=== PATIENT | female | born 1955 | race Caucasian/White ===

== ENCOUNTER 2023-02-05 23:01 | Emergency (ER) | payer MEDICARE, SELFPAY ==
[2023-02-05 23:04] VITALS: BP 130/77; PULSE 68; RESP 18; TEMP 36.6; O2SAT 98; BMI 34.7
--- NOTE | 2023-02-05 23:17 | EDS_ITS ---
HPI History of Present Illness Chief Complaint: Bite Narrative Narrative: Patient sustained a cat bite yesterday to her right hand. She noticed more redness today and some pain higher up in the arm. No fevers or chills. No axilla pain. No other injuries. ROS ROS ED ROS Narrative Past medical history: none Medications: Reviewed Social history: Noncontributory Review of systems: General: No fevers Musculoskeletal: Cat bite on the right hand as in HPI Skin: As above Neurological: No weakness or paresthesias Hematologic: On Xarelto for A-fib, bleeds easily. PFSH [facility], [facility] Medical History (Updated 02/06/23 @ 00:[address] Martín Avery MD) Afib Heart failure Home Medications amoxicillin 500 mg-potassium clavulanate 125 mg tablet (Augmentin) 1 tab PO TID #30 tabs 02/06/23 [Rx Last Taken Unknown] Allergy/AdvReac Type Severity Reaction Status Date / Time No Known Allergies Allergy Verified 02/05/23 23:04 Surgical History (Updated 02/05/23 @ 23:29 by Juhi Neves) Hx of cholecystectomy EXAM Physical Exam Narrative Exam Narrative: Physical exam General: Patient does not appear in significant distress . Head: Normocephalic, Atraumatic Neck: No C-spine tenderness Cardiovascular: Normal distal pulses. Regular pulses Back: Nontender, Normal Inspection. Extremities: Right hand shows a Puncture wound over the dorsum of the hand near the first metacarpal region. No bony tenderness. There are some erythema, it is very slight lymphangitic streaking that is barely noticeable but it is about retirement up the arm, half distance to the elbow. No axillary pain or lymphadenopathy Skin: As above Neurological: Normal strength and sensation Const Vital Signs: 02/05/23 23:04 Temperature 97.9 F Temperature Source Temporal Pulse Rate 68 Respiratory Rate 18 Blood Pressure 130/77 H Blood Pressure Mean 94 Pulse Ox 98 Oxygen Delivery Method Room Air MDM MDM MDM Narrative Medical decision making narrative: Patient has infected cat bite only very mild lymphangitic streaking. She has no leukocytosis. She was given IV antibiotics in the ED. I reevaluated her wound is not progressing and does not seem to be very aggressive. I talked to her about admission but at this time I believe she can be safely discharged home. She can receive oral antibiotics. I had a long discussion with her if anything changes she is to return if she gets worse she is to return I demarcated the streak on her arm with a pen and told her if it goes outside the line of she is to return. She understands this. She will be discharged in stable condition. I do not believe she meets criteria for an x-ray. She has normal vitals and heart rate and no fever and a normal white count therefore I do not believe a lactate is needed I believe I sufficiently ruled out sepsis. Lab Data Labs: Laboratory Results - last 24 hr 02/05/23 23:30 WBC 9.8 RBC 4.52 Hgb 14.0 Hct 41.9 MCV 92.7 MCH 31.0 MCHC 33.4 RDW Std Deviation 44.9 H RDW Coeff of [place] 13.2 Plt Count 237 MPV 9.8 Immature Gran % (Auto) 2.100 H Neut % (Auto) 64.7 Lymph % (Auto) 20.5 [place] % (Auto) 9.8 Eos % (Auto) 2.2 Baso % (Auto) 0.7 Absolute Neuts (auto) 6.4 Absolute Lymphs (auto) 2.02 Nucleated RBC % 0 Discharge Plan Triage Chief Complaint: Bite ED Provider: Martín Avery Dx/Rx/DC Orders Clinical Impression: Cellulitis, Lymphangitis, Cat bite Instructions: ED Cat Bite Prescriptions: New amoxicillin-pot clavulanate [Augmentin] 500-125 mg tablet 1 tab PO TID Qty: 30 0RF Primary Care Provider: Marissa Lamebrt Referrals: Marissa Lambert MD [Primary Care Provider] - 2 Days for wound check Disposition Disposition: Home, Self Care
[2023-02-05 23:35] LABS: Absolute Lymphocyte Count 2.02 X10^3/uL (0.83-4.51); Absolute Neutrophil Count 6.4 X10^3/uL (2.0-7.7); Basophil# 0.07 X10^3/uL; Basophil% 0.7 % (0-1); Eosinophil# 0.22 X10^3/uL; Eosinophils% 2.2 % (0-5); Hematocrit 41.9 % (37-47); Lymphocyte # 2.02 X10^3/ul (0.83-4.51); Lymphocyte % 20.5 % (19-41); Mean Corp Hgb Conc 33.4 g/dL (32-36); Mean Corpuscular Volume 92.7 fL (81-99); Mean Platelet Vol. 9.8 fl (6.2-12.0); Monocyte# 0.96 X10^3/uL; Monocyte% 9.8 % (0-10); NRBC Flagged by Analyzer 0 % (0-5); Neutrophil # 6.35 X10^3/uL (2.7-7.7); Neutrophil % 64.7 % (47-70); Platelet Count 237 K/mm3 (150-450); RBC Distribution Width CV 13.2 % (11.6-14.6); RBC Distribution Width SD 44.9 fl (35.1-43.9); Red Blood Count 4.52 M/mm3 (4.2-5.4); White Blood Count 9.8 K/mm3 (4.4-11.0)
[2023-02-06] MEDS: Amox/Clavulanate 875 MG Tablet PO (00:41)
== END 2023-02-06 01:50 | disposition home or self-care (01) ==
PROVIDERS: Emergency Provider Emergency Medicine; PCP Internal Medicine; Visit Provider Emergency Medicine
DX: S61.451A Open bite of right hand, initial encounter (principal); I50.9 Heart failure, unspecified; L03.113 Cellulitis of right upper limb; W55.01XA Bitten by cat, initial encounter
CPT/HCPCS: 85025; 96365; 99284; J7050; A4216; J0295

== ENCOUNTER 2023-02-19 10:54 | Emergency (ER) | payer MEDICARE, SELFPAY ==
[2023-02-19 10:56] VITALS: BP 137/72; PULSE 66; RESP 20; TEMP 36.3; O2SAT 97; BMI 34.9
--- NOTE | 2023-02-19 11:11 | EDS_ITS ---
HPI History of Present Illness Chief Complaint: Allergic Reaction Informant: patient Onset/Context/Timing Onset: Days Context: Gradual Onset Timing: Continuous Current Severity: Mild Maximum Severity: Mild Narrative Narrative: 67-year-old female was bitten by her cat seen in the emergency department on and placed on 10 days of Augmentin. She said about day 5 or 6 she started getting some areas of a red rash that itched. She finished the antibiotic. The rash seems to be improving. Today she thought she had a sore throat and came in to be evaluated. She denies any other complaints. Has no known allergies. Prior similar symptoms: No Recent Illness/Hospitalization: No PFSH PFSH Medical History Afib Heart failure Home Medications amoxicillin 500 mg-potassium clavulanate 125 mg tablet (Augmentin) 1 tab PO TID #30 tabs 02/06/23 [Rx Last Taken Unknown] Allergy/AdvReac Type Severity Reaction Status Date / Time No Known Allergies Allergy Verified 02/19/23 10:55 Surgical History Hx of cholecystectomy Social History Smoking Status: Never smoker ROS ROS ED ROS Narrative Itchy, red rash. Review of Systems ROS Unobtainable: Denies due to encephalopathy Constitutional Constitutional ED: Denies chills or fever(s) Eyes Eyes: Denies blurry vision ENT ENT ED: Reports sore throat; Denies ear pain or rhinorrhea Cardiovascular Cardiovascular: Denies chest pain Respiratory/Chest Respiratory/Chest: Denies cough or dyspnea Gastrointestinal Gastrointestinal: Denies abdominal pain Genitourinary Genitourinary ED: Denies dysuria or hematuria Musculoskeletal Musculoskeletal: Denies arthralgias Integumentary Denies abscess Neurologic Neurologic: Denies headache(s) Psychiatric Psychiatric: Denies anxiety Endocrine Endocrinology: Denies cold intolerance Hematologic/Lymphatic Hematologic/Lymphatic: Reports none Allergic/Immunologic Allergic/Immunologic ED: Denies mouth swelling, tongue swelling or urticaria EXAM Physical Exam Narrative Exam Narrative: Says 7-year-old female no acute distress. Vital signs stable afebrile. HEENT exam posterior pharynx is normal. She has no erythema or exudate. There is no swelling. No trouble swallowing or breathing. No drooling nor stridor. Prior tonsillectomy. There is no signs of infection or allergic reaction to posterior pharynx. Moist mucous membranes. TMs not visualized due to wax. Neck nontender no lymphadenopathy. Trachea midline. Lungs clear. Heart regular rhythm. Abdomen soft. Moving all 4 extremities. She has no swelling. I do not appreciate any significant rash or allergic reaction. There is no hives. Where she was bitten by her cat 2 weeks ago on her right thumb clinically looks well without any signs of infection. Const Vital Signs: 02/19/23 10:56 Temperature 97.4 F L Temperature Source Temporal Pulse Rate 66 Respiratory Rate 20 H Blood Pressure 137/72 H Blood Pressure Mean 93 Pulse Ox 97 Oxygen Delivery Method Room Air Positive well nourished and well developed; Negative for cachectic, contractures or unkempt General Appearance ED: well developed and NAD; Negative for unkempt, cachectic, contractures, cyanotic or diaphoretic Nutritional Appearance: Negative for cachectic HEENT Reports moist mucous membranes; Denies dry mucous membranes Negative for trauma or tenderness Mouth ED: No dry mucous membranes Mouth: No dry mucous membranes Eyes PERRL and EOMs intact bilaterally General Eye ED: Negative for pale conjunctiva, scleral icterus or other Neck no lymphadenopathy, supple and no JVD General: Negative for tenderness Lymph Lymphatic: Negative for other Chest Wall inspection of chest normal and palpation of chest normal Chest: Negative for other Resp normal respiratory effort and clear to auscultation bilaterally Effort and Inspection: Negative for retractions or pain with movement Auscultation: Negative for rales, rhonchi or wheezes Cardio regular rate, regular rhythm, S1 normal heart sound, S2 normal heart sound and no murmurs GI normal to inspection, nondistended, normoactive bowel sounds, non-tender, non- distended and no masses Inspection: Negative for abdominal distention Auscultation: normoactive bowel sounds Palpation: soft; Negative for tender or guarding Bladder / Kidney Exam: No other Back/Spine no CVA tenderness General Back: Negative for CVA tenderness Cervical Spine: Negative for cervical spine tenderness Thoracic Spine / Upper Back: Negative for thoracic spinal tenderness Lumbar Spine / Lower Back: Negative for lumbar spinal tenderness Extremity normal to inspection General Extremety ED: Negative for edema or tenderness General Extremity: Negative for edema Neuro oriented x3 and CN's II-XII intact bilaterally Sensorium / Orientation: alert; Negative for orientation impaired, lethargic or stuporous Motor Exam: strength 5/5 throughout Psych mental status grossly normal Appearance: Negative for unkempt Attitude: No agitated Mood & Affect: Negative for depressed, anxious or tearful Skin no rashes or lesions noted and no wounds Lesions: No lesion noted Rashes: No rashes noted Trauma: Negative for abrasion Wounds: Negative for wounds noted MDM MDM MDM Narrative Medical decision making narrative: 67-year-old most likely had a mild allergic reaction to Augmentin. Currently shiva chacon has no rash or swelling. She does not need any testing. I do not think she needs steroids. She stopped the medication after she finished it 4 to 5 days ago. Patient be discharged home. Discharge Plan Triage Chief Complaint: Allergic Reaction ED Provider: Shaun Meneses Dx/Rx/DC Orders Clinical Impression: Allergic reaction Instructions: ED ADVERSE DRUG REACTION Allergic Prescriptions: No Action amoxicillin-pot clavulanate [Augmentin] 500-125 mg tablet 1 tab PO TID Qty: 30 0RF Primary Care Provider: Marissa Lambert Referrals: Marissa Lambert MD [Primary Care Provider] - As Needed Activity Restrictions/Additional Instructions: This should progressively improved since she stopped the antibiotic 4 to 5 days ago. Follow-up with your doctor as needed. Warm salt water gargling for sore throat Disposition Disposition: Home, Self Care
== END 2023-02-19 11:25 | disposition home or self-care (01) ==
PROVIDERS: Emergency Provider Emergency Medicine; PCP Internal Medicine; Visit Provider Emergency Medicine
DX: T78.40XA Allergy, unspecified, initial encounter (principal); I50.9 Heart failure, unspecified; W55.01XA Bitten by cat, initial encounter
CPT/HCPCS: 99282; A4216

== ENCOUNTER → 2023-05-24 | Outpatient (CLI) | payer MEDICARE, SELFPAY | END | disposition home or self-care (01) | LOC: SL 19:54 | PROVIDERS: PCP Internal Medicine; Referring Provider Psychiatry & Neurology Sleep Medicine; Visit Provider Psychiatry & Neurology Sleep Medicine | DX: G47.33 Obstructive sleep apnea (adult) (pediatric) (principal); G47.34 Idiopathic sleep related nonobstructive alveolar hypoventilation | CPT/HCPCS: 95811 ==

== ENCOUNTER → 2023-07-21 | Outpatient (CLI) | payer MEDICARE, SELFPAY ==
[2023-07-21 13:08] LABS: Calcium,Total 8.7 mg/dL (8.5-10.1); Ferritin 13 ng/mL (8-252)
[2023-07-21 13:12] LABS: PTHIN 61.9 pg/mL (18.4-80.1)
[2023-07-24 12:08] LABS: Anti-Nuclear Antibody Test Positive (.)
== END | disposition home or self-care (01) ==
LOC: MTLAB 10:23
PROVIDERS: PCP Internal Medicine; Referring Provider Dermatology Pediatric Dermatology; Visit Provider Dermatology Pediatric Dermatology
DX: L64.8 Other androgenic alopecia (principal); D64.9 Anemia, unspecified; L65.0 Telogen effluvium; L40.0 Psoriasis vulgaris
CPT/HCPCS: 36415; 82310; 82728; 83970; 86038

== ENCOUNTER 2023-08-09 11:15 | Emergency (ER) | payer MEDICARE, SELFPAY ==
[2023-08-09 11:15] VITALS: BP 130/67; PULSE 90; RESP 14; TEMP 38.4; O2SAT 94; BMI 34.7
--- NOTE | 2023-08-09 11:46 | EDS_ITS ---
HPI HPI - URI History of Present Illness Chief Complaint: Cough Detail of Chief Complaint: Viral-like symptoms that started several days ago now fever 101.8 ?F Informant: patient Onset/Context/Timing Onset: Days Context: Sudden Onset Timing: Continuous and Waxes and wanes Quality: Flulike symptoms Location: Predominantly respiratory Current Severity: Mild Maximum Severity: Moderate Worsened by: Not Worsened By Swallowing, Eating Solids or Drinking Liquids Relieved by: Not Relieved By Tylenol Associated Symptoms Associated Symptoms: Positive for Nasal Congestion, Headache, Myalgias and Nonproductive cough; Negative for Sinus Pressure, Nausea, Vomiting, Diarrhea, Shortness of Breath, Chest Pain or Hemoptysis Narrative Narrative: Patient is a 67-year-old woman who is a former smoker who presents with flulike symptoms that started several days ago. She presents now because of a documented temperature of 101.8. She does have a cough which is nonproductive. She does report mild nasal congestion as well as chest congestion. She has had intermittent wheezing. She denies headache, photophobia, neck pain or neck stiffness. She denies GI symptoms. She denies urologic symptoms. She does report myalgias without arthralgias. She has not noticed skin rash or lesions. She does endorse thirst and dry mouth. She took antipyretic prior to arrival. Prior similar symptoms: No Recent Illness/Hospitalization: No ROS ROS ED Cardiovascular Cardiovascular: Denies chest pain, orthopnea, palpitations or paroxysmal nocturnal dyspnea Respiratory/Chest Respiratory/Chest: Reports cough and dyspnea; Denies dyspnea on exertion, orthopnea or paroxysmal nocturnal dyspnea Gastrointestinal Gastrointestinal: Denies abdominal pain, diarrhea, nausea or vomiting Genitourinary Genitourinary ED: Denies dysuria, hematuria or urinary frequency Musculoskeletal Musculoskeletal: Reports myalgias; Denies arthralgias, back pain or neck pain Integumentary Denies rash Neurologic Neurologic: Reports headache(s) and weakness; Denies paresthesias Hematologic/Lymphatic Hematologic/Lymphatic: Denies easy bleeding or easy bruising [facility] Medical History Afib Heart failure Home Medications amoxicillin 500 mg-potassium clavulanate 125 mg tablet (Augmentin) 1 tab PO TID #30 tabs 02/06/23 [Rx Last Taken Unknown] Allergy/AdvReac Type Severity Reaction Status Date / Time amoxicillin [From Augmentin] Allergy Mild Rash Verified 08/09/23 11:22 clavulanic acid Allergy Mild Rash Verified 08/09/23 11:20 Surgical History Hx of cholecystectomy Social History (Updated 08/09/23 @ 11:[address] Noah Stewart MD) household members: spouse Smoking Status: Former smoker substance use type: does not use EXAM Physical Exam Const Vital Signs: 08/09/23 11:15 08/09/23 11:15 Temperature 101.1 F H Temperature Source Temporal Pulse Rate 90 Respiratory Rate 14 Respiratory Effort Short of Breath Respiratory Depth Normal Respiratory Pattern Normal Blood Pressure 130/67 H Blood Pressure Mean 88 Pulse Ox 94 Oxygen Delivery Method Room Air Room Air Positive well nourished, well developed and obese Constitutional Narrative: Patient appears ill but not toxic. General Appearance ED: well developed and NAD; Negative for cyanotic, diaphoretic or pallor Nutritional Appearance: obese HEENT Reports dry mucous membranes normocephalic and atraumatic Face and Sinus: Negative for sinus tenderness Mouth ED: Yes dry mucous membranes Mouth: dry mucous membranes Throat: posterior oropharynx normal Eyes PERRL and EOMs intact bilaterally General Eye ED: Negative for pale conjunctiva or scleral icterus Neck no lymphadenopathy, supple, no meningeal signs and no JVD Resp normal respiratory effort and No clear to auscultation bilaterally Resp Narrative: Bilateral adventitial breath sounds noted. No other abnormality appreciated. Cardio S1 normal heart sound, S2 normal heart sound and no murmurs Rate: regular rate Rhythm: regular rhythm GI non-tender, non-distended and no masses Auscultation: normoactive bowel sounds Palpation: soft Back/Spine no CVA tenderness Thoracic Spine / Upper Back: Negative for thoracic spinal tenderness Lumbar Spine / Lower Back: Negative for lumbar spinal tenderness Extremity normal to inspection and full ROM General Extremety ED: Negative for cyanosis General Extremity: Negative for cyanosis Neuro oriented x3, CN's II-XII intact bilaterally and no sensory deficits noted Sensorium / Orientation: alert Psych mental status grossly normal Skin General Skin Exam: Negative for jaundice or pallor Lesions: no lesions Rashes: no rashes MDM MDM MDM Narrative Medical decision making narrative: Patient with flulike symptoms. Will assess for COVID, influenza and RSV. Since she has abnormal breath sounds with fever and cough will obtain chest x-ray to assess for pneumonia. Since clinically she appears dehydrated IV fluids were ordered. History & Record Review Additional record(s) reviewed:: Prior labs (CBC was unremarkable. Patient a positive CHUY.) Lab Data Attestation: I reviewed the patient's lab results. Lab results narrative: lower end of normalBasic metabolic panel is unremarkable. Potassium is 3.4 which is slightly below and glucose is slightly elevated at 109. CO2 anion gap are normal. Antigen for COVID, influenza and RSV revealed patient has influenza type A. Labs: Laboratory Results - last 24 hr 08/09/23 12:00 Sodium 137 Potassium 3.4 L Chloride 105 Carbon Dioxide 27.0 Anion Gap 5 BUN 9 Creatinine 0.71 Estim Creat Clear Calc 80.84 Est GFR (MDRD) Af Amer 104 Est GFR (MDRD) Non-Af 86 BUN/Creatinine Ratio 12.6 Glucose 109 H Calcium 8.8 Radiography Chest X-Ray - ED: Read by ED Physician (Cardiac silhouette is unremarkable. Patient does have cardiomegaly with chronic lung changes. There is no effusion. Mediastinum is normal. Osseous structures unremarkable. This was independent reviewed interpreted by me.) Diagnostic Testing: Clinical Impression(s) from Imaging Studies Chest X-Ray 08/09/23 12:15 IMPRESSION: Cardiomegaly with mild hyperinflation and minimal diffuse interstitial prominence. No active or acute cardiopulmonary disease. Electronically Signed: Nelson Gomez MD at 12:28 EST Reading Location ID and State: [address] [place] [address] , Service support , Treatment and Re-Evaluation Narrative: Since patient's symptoms started more than 72 hours ago she is not a candidate for Tamiflu. Treatment is symptomatic. Discharge Plan Triage Chief Complaint: Cough ED Provider: Noah Stewart Dx/Rx/DC Orders Clinical Impression: Acute dehydration, History of heart failure, Fever in adult, Type A influenza Instructions: ED Influenza (Adult) Prescriptions: No Action amoxicillin-pot clavulanate [Augmentin] 500-125 mg tablet 1 tab PO TID Qty: 30 0RF Primary Care Provider: Marissa Lambert Referrals: Marissa Lambert MD [Primary Care Provider] - 1 Week if not improving Disposition Disposition: Home, Self Care
[2023-08-09] MEDS: 0.9% Normal Saline (1000mL) 1,000 ML 1000 ML IV (12:01)
--- NOTE | 2023-08-09 12:15 | RAD_ITS ---
STUDY: X-RAY CHEST REASON FOR EXAM: Female, 67 years old. Cough. TECHNIQUE: Frontal and lateral views of the chest. COMPARISON: None. FINDINGS: Mild hyperinflation with minimal diffuse interstitial prominence. There is no demonstrated pleural abnormality. Cardiomegaly. Normal mediastinum and citlali. Normal visualized pulmonary arteries. Aortic tortuosity with minimal calcification. Diffuse mild thoracic spondylosis with increased kyphosis. Normal visualized ribs, clavicles, and shoulders. No abnormality of the visualized soft tissue structures of the upper abdomen. RAD/Chest PA and Lateral IMPRESSION: Cardiomegaly with mild hyperinflation and minimal diffuse interstitial prominence. No active or acute cardiopulmonary disease. Electronically Signed: Nelson Gomez MD at 12:28 EST ,
[2023-08-09 12:20] LABS: Anion Gap 5 (5-15); BUN 9 mg/dL (7-18); BUN/Creat Ratio 12.6 RATIO (10-20); Calcium,Total 8.8 mg/dL (8.5-10.1); Chloride 105 mmol/L (98-107); Creatinine, Serum 0.71 mg/dL (0.55-1.02); EST Glomerular Filtration Rate 86 mL/min (>60); Est Glom Filt Rate - Afr Amer 104 mL/min (>60); Estimated Creatinine Clearance 80.84 ml/min; Glucose 109 mg/dL (74-106); Potassium 3.4 mmol/L (3.5-5.1); Sodium Level 137 mmol/L (136-145)
[2023-08-09 13:21] VITALS: BP 123/71; PULSE 83; TEMP 38
== END 2023-08-09 13:23 | disposition home or self-care (01) ==
PROVIDERS: Emergency Provider Emergency Medicine; PCP Internal Medicine; Visit Provider Emergency Medicine
DX: J10.1 Influenza due to other identified influenza virus with other respiratory manifestations (principal); I50.9 Heart failure, unspecified; E86.0 Dehydration; Z87.891 Personal history of nicotine dependence; R51.9 Headache, unspecified; E66.9 Obesity, unspecified; R50.9 Fever, unspecified
CPT/HCPCS: 96361; 71046; 80048; 87631; 96360; 99283; J7030; A4216

== ENCOUNTER 2023-09-20 13:25 | Outpatient (CLI) | payer MEDICARE, SELFPAY ==
[2023-09-20 15:42] LABS: Absolute Lymphocyte Count 1.49 X10^3/uL (0.83-4.51); Absolute Neutrophil Count 3.6 X10^3/uL (2.0-7.7); Basophil# 0.06 X10^3/uL; Eosinophils% 3.4 % (0-5); Hematocrit 41.9 % (37-47); Hemoglobin 13.8 g/dL (12.0-15.0); Lymphocyte # 1.49 X10^3/ul (0.83-4.51); Mean Corp Hgb Conc 32.9 g/dL (32-36); Mean Corpuscular Hgb 30.7 pg (27.0-32.0); Mean Corpuscular Volume 93.3 fL (81-99); Mean Platelet Vol. 10.8 fl (6.2-12.0); Monocyte# 0.62 X10^3/uL; Monocyte% 10.4 % (0-10); NRBC Flagged by Analyzer 0 % (0-5); Neutrophil # 3.56 X10^3/uL (2.7-7.7); Neutrophil % 59.9 % (47-70); Platelet Count 281 K/mm3 (150-450); RBC Distribution Width CV 14.6 % (11.6-14.6); RBC Distribution Width SD 50.6 fl (35.1-43.9); Red Blood Count 4.49 M/mm3 (4.2-5.4)
[2023-09-20 15:56] LABS: Vitamin D,25 Hydroxy 24.2 ng/mL
[2023-09-20 16:09] LABS: Ferritin 75 ng/mL (8-252); Thyroid Stim Hormone (TSH) 1.81 uIU/mL (0.358-3.74)
[2023-09-23 08:12] LABS: Thyroid Peroxidase AB 71 IU/mL (0-34); Zinc, Plasma or Serum 55 ug/dL (44-115)
== END 2023-09-20 23:59 | disposition home or self-care (01) ==
LOC: MTLAB 13:26
PROVIDERS: PCP Internal Medicine; Referring Provider Physician Assistant; Visit Provider Physician Assistant
DX: L64.8 Other androgenic alopecia (principal)
CPT/HCPCS: 36415; 82306; 82728; 84439; 84443; 84630; 85025; 86376

== ENCOUNTER 2024-02-22 19:03 | Emergency (ER) | payer MEDICARE, SELFPAY ==
[2024-02-22 19:04] VITALS: BP 170/80; PULSE 69; RESP 18; TEMP 36.1; O2SAT 96
[2024-02-22 19:06] VITALS: BMI 36.9
[2024-02-22 21:03] VITALS: BP 130/83; PULSE 60; RESP 16; O2SAT 94
[2024-02-22 23:00] VITALS: BP 130/84; PULSE 62; RESP 16; O2SAT 97
[2024-02-22] MEDS: TRANEXAMIC ACID 1,000 MG/10 ML ML OPERA.SITE (23:28)
[2024-02-22 23:29] VITALS: BP 130/84; PULSE 63; RESP 16; TEMP 37.1; O2SAT 96
--- NOTE | 2024-02-22 23:37 | EX.ED.DYSGE1 ---
HPI History of Present Illness Chief Complaint: Other, Pain/Inj Informant: patient Narrative Narrative: Patient 68-year-old female presenting for bleeding after procedure. Patient had what sounds a right heart cath for pulmonary hypertension performed today. They accessed through her right wrist but also in her right neck. She has had bleeding from the site and she has not been able to control it. Patient did have a full dose aspirin today. She reports that she normally takes Xarelto but has been holding it over the past 5 days in anticipation of this procedure. No other complaints or concerns at this time. [facility] Medical History Sleep apnea Heart failure Afib Home Medications ?Medication ?Instructions ?Recorded ?Last Taken ?Type amoxicillin 500 mg-potassium 1 tab PO TID #30 tabs 02/06/23 Unknown Rx clavulanate 125 mg tablet (Augmentin) aspirin 81 mg capsule 81 mg PO DAILY 02/22/24 Unknown History cholecalciferol (vitamin D3) 25 1,000 unit PO DAILY 02/22/24 Unknown History mcg (1,000 unit) chewable tablet dapagliflozin propanediol 10 mg 10 mg PO DAILY 02/22/24 Unknown History tablet (Farxiga) estradiol 0.01% (0.1 mg/gram) 1 appful vaginal DAILY 02/22/24 Unknown History vaginal cream ferrous sulfate 325 mg (65 mg 325 mg PO QDAY 02/22/24 Unknown History iron) tablet (Suzanne-Time) folic acid 20 mg capsule 20 mg PO DAILY 02/22/24 Unknown History furosemide 40 mg tablet 40 mg PO DAILY 02/22/24 Unknown History hydrocortisone 2.5 % topical cream applic topical 02/22/24 Unknown History levothyroxine 100 mcg tablet 100 mcg PO DAILY 02/22/24 Unknown History metoprolol succinate 50 mg 25 mg PO BID 02/22/24 Unknown History tablet,extended release 24 hr nystatin 100,000 unit/gram topical 1 applic topical BID 02/22/24 Unknown History powder (Klayesta) omeprazole 20 mg capsule,delayed 20 mg PO BID 02/22/24 Unknown History release rivaroxaban 20 mg tablet (Xarelto) 20 mg PO DAILY 02/22/24 Unknown History sacubitril 24 mg-valsartan 26 mg 1 tab PO BID 08/08/24 Unknown History tablet (Entresto) spironolactone 25 mg tablet 25 mg PO DAILY 02/22/24 Unknown History trazodone 150 mg tablet 150 mg PO QHS 02/22/24 Unknown History vitamin B complex (B-Complex 1 tab PO DAILY 02/22/24 Unknown History tablet) zolpidem 5 mg tablet 2.5 mg PO QHS 02/22/24 Unknown History Allergy/AdvReac Type Severity Reaction Status Date / Time amoxicillin (From Augmentin) Allergy Mild Rash Verified 02/22/24 19:04 clavulanic acid Allergy Mild Rash Verified 02/22/24 19:04 Surgical History Hx of cholecystectomy Social History household members: spouse Smoking Status: Former smoker substance use type: does not use ROS ROS ED Constitutional Constitutional ED: Denies chills or fever(s) Gastrointestinal Gastrointestinal: Denies nausea or vomiting Musculoskeletal Musculoskeletal: Reports neck pain Integumentary Reports other Details: Bleeding wound on right neck Hematologic/Lymphatic Hematologic/Lymphatic: Reports easy bleeding and easy bruising EXAM Physical Exam Const Vital Signs: 02/22/24 19:04 02/22/24 19:31 02/22/24 21:03 Temperature 97 F L Temperature Source Temporal Pulse Rate 69 60 Respiratory Rate 18 16 Respiratory Effort Normal Non-Labored Respiratory Pattern Normal Blood Pressure 170/80 H 130/83 H Blood Pressure Mean 110 98 Pulse Ox 96 94 Oxygen Delivery Method Room Air Room Air 02/22/24 23:00 02/22/24 23:29 Temperature 98.7 F Temperature Source Pulse Rate 62 63 Respiratory Rate 16 16 Respiratory Effort Respiratory Pattern Blood Pressure 130/84 H 130/84 H Blood Pressure Mean 99 99 Pulse Ox 97 96 Oxygen Delivery Method Room Air Positive well nourished and well developed General Appearance ED: well developed and NAD HEENT Reports moist mucous membranes Eyes PERRL Neck supple Neck Narrative: No expanding hematoma. No pulsatile mass. There is a pinpoint area of the right lateral neck proximally at the site of the right IJ that is slowly oozing blood. No pulsatile bleeding is appreciated. No surrounding hematoma appreciated. Normal phonation. Resp normal respiratory effort and clear to auscultation bilaterally Cardio regular rate and regular rhythm Extremity normal to inspection Extremity Narrative: Bandage on the right wrist consistent with pressure dressing from radial artery access no bleeding at the site appreciated Neuro oriented x3 Sensorium / Orientation: alert Motor Exam: Negative for general weakness Psych mental status grossly normal Skin Skin Narrative: Bleeding pinpoint wound of the right neck, see above. There is surrounding erythema and dermatitis consistent with skin irritation from adhesive MDM MDM MDM Narrative Medical decision making narrative: Patient evaluated for bleeding from her neck. No signs of expanding hematoma. It appears to be venous bleeding. I do not think requires any imaging. Initially localized pressure was applied but she continues to bleed. Gelfoam then used with pressure dressing but she continues to have oozing. TXA soaked gauze is applied and then a combination takes a soaked gauze with Gelfoam applied. The patient continues to have oozing. It is not a significant amount of blood and I do not think a CBC is indicated. Figure of 8 stitch using 4-0 rapid Vicryl then placed with cessation of the bleeding. Patient is monitored and ambulated. She has no further bleeding and is otherwise asymptomatic. Was discharged home. Counseled on localized wound care. She verbalized agreement and understands this plan. GIven return precautions. Discharge Plan Triage Chief Complaint: Other, Pain/Inj ED Provider: Valentina Cook Dx/Rx/DC Orders Clinical Impression: Postoperative hemorrhage of skin following non-dermatologic procedure Prescriptions: No Action amoxicillin-pot clavulanate [Augmentin] 500-125 mg tablet 1 tab PO TID Qty: 30 0RF aspirin 81 mg capsule 81 mg PO DAILY folic acid 20 mg capsule 20 mg PO DAILY dapagliflozin propanediol [Farxiga] 10 mg tablet 10 mg PO DAILY furosemide 40 mg tablet 40 mg PO DAILY levothyroxine 100 mcg tablet 100 mcg PO DAILY omeprazole 20 mg capsule,delayed release(DR/EC) 20 mg PO BID zolpidem 5 mg tablet 2.5 mg PO QHS nystatin [Klayesta] 100,000 unit/gram powder 1 applic topical BID trazodone 150 mg tablet 150 mg PO QHS hydrocortisone 2.5 % cream TOPICAL Patient Comments: PLEASE SEE ATTACHED FOR DETAILED DIRECTIONS cholecalciferol (vitamin D3) 25 mcg (1,000 unit) tablet,chewable 1,000 unit PO DAILY Xarelto 20 mg tablet 20 mg PO DAILY vitamin B complex [B-Complex] Tablet 1 tab PO DAILY metoprolol succinate 50 mg tablet extended release 24 hr 25 mg PO BID Entresto 24-26 mg tablet 1 tab PO BID spironolactone 25 mg tablet 25 mg PO DAILY ferrous sulfate [Suzanne-Time] 325 mg (65 mg iron) tablet 325 mg PO QDAY estradiol 0.01 % (0.1 mg/gram) cream 1 appful vaginal DAILY Rx Instructions: for 14 days Primary Care Provider: Marissa Lambert Referrals: Marissa Lambert MD [Primary Care Provider] - Activity Restrictions/Additional Instructions: Please return if you have further bleeding. Keep the dressing in place for the next 24 to 48 hours. 1 absorbable stitch was placed in that area. It should come out on its own over the next week however if needed your primary care doctor can remove it at your visit next week. Print Language: Faroese Disposition Disposition: Home, Self Care
== END 2024-02-22 23:45 | disposition home or self-care (01) ==
PROVIDERS: Emergency Provider Emergency Medicine; PCP Internal Medicine; Visit Provider Emergency Medicine
DX: L76.22 Postprocedural hemorrhage of skin and subcutaneous tissue following other procedure (principal); I50.9 Heart failure, unspecified; I48.91 Unspecified atrial fibrillation; Z79.01 Long term (current) use of anticoagulants; Z79.899 Other long term (current) drug therapy; Z87.891 Personal history of nicotine dependence; Z23 Encounter for immunization
CPT/HCPCS: 12001; 90471; 99284

== ENCOUNTER → 2025-01-13 | Outpatient (CLI) | payer SELFPAY ==
[2025-01-13 15:08] LABS: SERUM TEARS COLLECTION SPECIMEN PROCESSED
== END | disposition home or self-care (01) ==
LOC: LAB 13:05
PROVIDERS: PCP Internal Medicine; Referring Provider Ophthalmology; Visit Provider Ophthalmology
DX: H04.123 Dry eye syndrome of bilateral lacrimal glands (principal)

== ENCOUNTER → 2025-03-12 | Outpatient (CLI) | payer MEDICARE, SELFPAY ==
[2025-03-12 18:05] LABS: Hematocrit 45.8 % (37-47); Hemoglobin 15.2 g/dL (12.0-15.0); Immature Granulocytes Count 0.010 X10^3/uL (0.0-0.0); Mean Corp Hgb Conc 33.2 g/dL (32-36); Mean Corpuscular Volume 93.5 fL (81-99); Mean Platelet Vol. 10.6 fl (6.2-12.0); NRBC Flagged by Analyzer 0 % (0-5); Platelet Count 231 K/mm3 (150-450); RBC Distribution Width CV 12.9 % (11.6-14.6); RBC Distribution Width SD 44.4 fl (35.1-43.9); Red Blood Count 4.90 M/mm3 (4.2-5.4); White Blood Count 6.3 K/mm3 (4.4-11.0)
[2025-03-12 18:20] LABS: AST(SGOT) 27 U/L (<=31); Alanine Aminotransfer ALT/SGPT 25 U/L (<=34); Albumin, Serum 4.5 g/dL (3.4-4.8); Alkaline Phosphatase 47 U/L (35-104); Anion Gap 11 (5-15); BUN 19 mg/dL (4-19); BUN/Creat Ratio 19.9 RATIO (10-20); Calcium,Total 9.8 mg/dL (7.6-11.0); Carbon Dioxide 26.1 mmol/L (21.0-32.0); Chloride 102 mmol/L (98-108); Ferritin 157 ng/mL (22-378); Globulin 2.6 g/dL (2.2-4.2); Glucose 124 mg/dL (70-99); Potassium 4.2 mmol/L (3.3-5.1)
== END | disposition home or self-care (01) ==
LOC: MTLAB 14:08
PROVIDERS: PCP Internal Medicine; Referring Provider Physician Assistant Medical; Visit Provider Physician Assistant Medical
DX: L64.8 Other androgenic alopecia (principal)
CPT/HCPCS: 36415; 80053; 82728; 85025